=== PATIENT | female | born 1950 | race Caucasian/White ===

== ENCOUNTER → 2016-03-22 | Outpatient (CLI) | payer OTHER ==
[~2016-03-22] MED LIST: AMLO5TAB2 PO; AMPH20CA3 PO; ASP81TEC PO; CA C1TAB26 PO; CEFU500T5 PO; CYCL10TA9 PO; ESTR0.3T PO; HYDR1TAB8 OP; METH4TAB PO
--- NOTE | 2016-03-22 18:00 | Diagnostic Imaging Report ---
Indication: Lower respiratory infection x4 weeks PA and lateral chest Heart size and pulmonary vascularity are normal. Lungs are clear. There are no effusions or pneumothoraces. Impression: Negative chest Dictated by: Dictated on workstation # [id number]
[2016-03-22 18:17] LABS: MEAN PLATELET VOLUME 9.7 FL (7.4-10.4); RED BLOOD COUNT 4.46 10^6/uL (4.35-5.85); RED CELL DISTRIBUTION WIDTH 14.4 % (10.0-14.5); WHITE BLOOD COUNT 7.7 10^3/uL (4.3-11.0)
== END ==
LOC: RAD 17:37
PROVIDERS: ATTEND Family Medicine
DX: R05 Cough (principal)
CPT/HCPCS: 36415; 71020; 85027

== ENCOUNTER → 2018-03-26 | Outpatient (CLI) | payer MEDICARE, OTHER ==
[2018-03-26 09:42] LABS: BASOPHILS % (AUTO) 0 % (0-10); EOSINOPHILS # (AUTO) 0.2 10^3/uL (0.0-0.3); EOSINOPHILS % (AUTO) 2 % (0-10); HEMATOCRIT 39 % (35-52); LYMPHOCYTES % (AUTO) 22 % (12-44); MEAN CORPUSCULAR HEMOGLOBIN 28 PG (25-34); MEAN CORPUSCULAR HGB CONC 33 G/DL (32-36); MEAN CORPUSCULAR VOLUME 83 FL (80-99); MEAN PLATELET VOLUME 10.3 FL (7.4-10.4); MONOCYTES # (AUTO) 0.6 X 10^3 (0.0-1.0); MONOCYTES % (AUTO) 6 % (0-12); NEUTROPHILS # (AUTO) 6.4 X 10^3 (1.8-7.8); NEUTROPHILS % (AUTO) 70 % (42-75); PLATELET COUNT 342 10^3/uL (130-400); RED BLOOD COUNT 4.68 10^6/uL (4.35-5.85); RED CELL DISTRIBUTION WIDTH 13.6 % (10.0-14.5); WHITE BLOOD COUNT 9.2 10^3/uL (4.3-11.0)
[2018-03-26 10:12] LABS: ALANINE AMINOTRANSFERASE 27 U/L (0-55); ALBUMIN 4.5 GM/DL (3.2-4.5); ALKALINE PHOSPHATASE 96 U/L (40-136); BILIRUBIN,TOTAL 0.4 MG/DL (0.1-1.0); BUN/CREATININE RATIO 19; CALCIUM 9.4 MG/DL (8.5-10.1); CARBON DIOXIDE 24 MMOL/L (21-32); CHLORIDE 106 MMOL/L (98-107); CHOLESTEROL 225 MG/DL (< 200); GFR ESTIMATED > 60; GLUCOSE 103 MG/DL (70-105); HDL CHOLESTEROL 67 MG/DL (40-60); POTASSIUM 3.8 MMOL/L (3.6-5.0); SODIUM 142 MMOL/L (135-145); TOTAL PROTEIN 7.8 GM/DL (6.4-8.2)
[2018-03-26 11:20] LABS: TRIGLYCERIDES 181 MG/DL (<150); VLDL CHOLESTEROL 36 MG/DL (5-40)
== END ==
LOC: LAB 09:26
PROVIDERS: ATTEND Family Medicine
DX: E78.5 Hyperlipidemia, unspecified (principal); E11.9 Type 2 diabetes mellitus without complications; R53.83 Other fatigue; I10 Essential (primary) hypertension
CPT/HCPCS: 36415; 80053; 80061; 83036; 85025

== ENCOUNTER → 2018-10-06 | Outpatient (CLI) | payer MEDICARE, OTHER ==
[2018-10-06 11:15] LABS: ALANINE AMINOTRANSFERASE 34 U/L (0-55); ALBUMIN 4.5 GM/DL (3.2-4.5); ALKALINE PHOSPHATASE 101 U/L (40-136); BILIRUBIN,TOTAL 0.5 MG/DL (0.1-1.0); BUN/CREATININE RATIO 14; CALCIUM 9.7 MG/DL (8.5-10.1); CARBON DIOXIDE 25 MMOL/L (21-32); CHLORIDE 102 MMOL/L (98-107); CHOLESTEROL 213 MG/DL (< 200); CREATININE SERUM 0.74 MG/DL (0.60-1.30); GFR ESTIMATED > 60; GLUCOSE 97 MG/DL (70-105); HDL CHOLESTEROL 59 MG/DL (40-60); POTASSIUM 3.9 MMOL/L (3.6-5.0); SODIUM 139 MMOL/L (135-145); TOTAL PROTEIN 7.5 GM/DL (6.4-8.2); TRIGLYCERIDES 173 MG/DL (<150); VLDL CHOLESTEROL 35 MG/DL (5-40)
== END ==
LOC: LAB 10:29
PROVIDERS: ATTEND Family Medicine
DX: E78.00 Pure hypercholesterolemia, unspecified (principal); E11.9 Type 2 diabetes mellitus without complications
CPT/HCPCS: 36415; 80053; 80061; 82570; 83036; 84156

== ENCOUNTER 2021-09-18 14:07 | Emergency (ER) | payer MEDICARE, OTHER ==
[~2021-09-18] VITALS: Ht 170.2 cm; Wt 106.6 kg
--- NOTE | 2021-09-18 14:43 | ED Chest Pain ---
General Chief Complaint: Chest Pain Stated Complaint: POSSIBLE HEART ATTACK YESTERDAY Source: patient Exam Limitations: no limitations History of Present Illness Date Seen by Provider: Sep 18, 2021 Time Seen by Provider: 14:20 Initial Comments Patient to the ER by private conveyance chief complaint yesterday while at the grocery store she started having some crushing gripping belt-like squeezing around her middle of her chest pain and pressure. It did not go away so she went home took a couple aspirin and took a nap. When she woke up 5 hours later it was gone. She does not have a history of coronary disease. She does not have history of smoking, hyperlipidemia or diabetes but she does have a history of hypertension. She is known to primary care in [place]. Cardiac catheterization by Dr. Sosa 2011 demonstrating no significant obstr uctive disease, 20 to 30% proximal right coronary artery stenosis otherwise nonobstructive. EF of 60%. Normal thoracic aorta and aortic root. Allergies and Home Medications Allergies Coded Allergies: No Known Drug Allergies (Unverified , 05/09/11) Patient Home Medication List Home Medication List Reviewed: Yes Amlodipine Besylate (Amlodipine Besylate) 5 Mg Tablet, 5 MG PO HS, (Reported) Entered as Reported by: LUCÍA MALAGON on 05/09/11 1259 Amphet Asp/Amphet/D-Amphet (Adderall Xr 20 Mg Capsule) 20 Mg Cap.sr.24h, 20 MG PO DAILY, (Reported) Entered as Reported by: LUCÍA MALAGON on 05/09/11 1259 Aspirin (Aspirin Ec 81 Mg) 81 Mg Tabec, 81 MG PO DAILY, (Reported) Entered as Reported by: KURTIS MENCHACA on 05/10/11 1022 Estrogens Conjugated (Premarin Tab) 0.3 Mg Tab, 0.3 MG PO DAILY, (Reported) Entered as Reported by: LUCÍA MALAGON on 05/09/11 1259 Hydrocodone Bit/Ibuprofen (Vicoprofen 200-7.5 Mg Tab) 1 Each Tablet, 1-2 EACH OP Q 4 - 6 HRS PRN Prescribed by: OUMAR ROSENBERG on 01/30/121942 Review of Systems Review of Systems Constitutional: No chills, No diaphoresis EENTM: No Blurred Vision, No Double Vision Respiratory: Denies Cough, Denies Shortness of Air Cardiovascular: Chest Pain; Denies Edema, Denies Lightheadedness Gastrointestinal: Denies Abdominal Pain, Denies Constipated, Denies Diarrhea, Denies Nausea Genitourinary: Denies Burning, Denies Discharge Musculoskeletal: No back pain, No joint pain All Other Systems Reviewed Negative Unless Noted: Yes Past Ptequzs-Ieguqs-Vfiirj Hx Patient Social History Tobacco Use?: No Use of E-Cig and/or Vaping dev: No Physical Exam Vital Signs Vital Signs - First Documented 09/18/21 14:10 Temp 36.3 Pulse 80 Resp 15 B/P (MAP) 102/68 (79) O2 Delivery Room Air Capillary Refill : Height, Weight, BMI Height: '" Weight: lbs. oz. kg; BMI Method:Stated General Appearance: No Apparent Distress, WD/WN, Anxious HEENT: PERRL/EOMI, Pharynx Normal, Moist Mucous Membranes Neck: Full Range of Motion, Normal Inspection Respiratory: Chest Non Tender, Lungs Clear, Normal Breath Sounds, No Accessory Muscle Use, No Respiratory Distress Cardiovascular: Regular Rate, Rhythm, No Edema, Normal Peripheral Pulses Gastrointestinal: Normal Bowel Sounds, No Organomegaly, Non Tender, Soft Extremity: Normal Capillary Refill, Normal Inspection, No Pedal Edema Neurologic/Psychiatric: Alert, Oriented x3, No Motor/Sensory Deficits, Normal Mood/Affect Skin: Normal Color, Warm/Dry Progress/Results/Core Measures Results/Orders Lab Results Laboratory Tests Test 09/18/21 14:15 Range/Units White Blood Count 9.2 4.3-11.0 10^3/uL Red Blood Count 4.17 3.80-5.11 10^6/uL Hemoglobin 11.5 11.5-16.0 g/dL Hematocrit 36 35-52 % Mean Corpuscular Volume 86 80-99 fL Mean Corpuscular Hemoglobin 28 25-34 pg Mean Corpuscular Hemoglobin Concent 32 32-36 g/dL Red Cell Distribution Width 13.3 10.0-14.5 % Platelet Count 333 130-400 10^3/uL Mean Platelet Volume 11.1 9.0-12.2 fL Immature Granulocyte % (Auto) 0 % Neutrophils (%) (Auto) 69 42-75 % Lymphocytes (%) (Auto) 21 12-44 % Monocytes (%) (Auto) 8 0-12 % Eosinophils (%) (Auto) 2 0-10 % Basophils (%) (Auto) 0 0-10 % Neutrophils # (Auto) 6.3 1.8-7.8 X 10^3 Lymphocytes # (Auto) 1.9 1.0-4.0 X 10^3 Monocytes # (Auto) 0.7 0.0-1.0 X 10^3 Eosinophils # (Auto) 0.2 0.0-0.3 10^3/uL Basophils # (Auto) 0.0 0.0-0.1 10^3/uL Immature Granulocyte # (Auto) 0.0 0.0-0.1 10^3/uL Prothrombin Time 12.7 12.2-14.7 SEC INR Comment 0.9 0.8-1.4 Activated Partial Thromboplast Time 37 H 24-35 SEC Sodium Level 140 135-145 MMOL/L Potassium Level 3.6 3.6-5.0 MMOL/L Chloride Level 105 98-107 MMOL/L Carbon Dioxide Level 23 21-32 MMOL/L Anion Gap 12 5-14 MMOL/L Blood Urea Nitrogen 18 7-18 MG/DL Creatinine 1.05 0.60-1.30 MG/DL Estimat Glomerular Filtration Rate 57 BUN/Creatinine Ratio 17 Glucose Level 123 H 70-105 MG/DL Calcium Level 9.3 8.5-10.1 MG/DL Corrected Calcium 8.9 8.5-10.1 MG/DL Magnesium Level 2.1 1.6-2.4 MG/DL Total Bilirubin 0.4 0.1-1.0 MG/DL Aspartate Amino Transf (AST/SGOT) 30 5-34 U/L Alanine Aminotransferase (ALT/SGPT) 36 0-55 U/L Alkaline Phosphatase 80 40-136 U/L Myoglobin 43.1 10.0-92.0 NG/ML Troponin I < 0.028 <0.028 NG/ML Total Protein 7.6 6.4-8.2 GM/DL Albumin 4.5 3.2-4.5 GM/DL Lipase 38 8-78 U/L My Orders Orders - ARLEEN SOSA Ekg Tracing (09/18/21 14:12) Ekg Tracing (09/18/21 14:14) Cbc With Automated Diff (09/18/21 14:44) Magnesium (09/18/21 14:44) Chest 1 View, Ap/Pa Only (09/18/21 14:44) Comprehensive Metabolic Panel (09/18/21 14:44) Myoglobin Serum (09/18/21 14:44) Protime With Inr (09/18/21 14:44) Partial Thromboplastin Time (09/18/21 14:44) O2 (09/18/21 14:44) Monitor-Rhythm Ecg Trace Only (09/18/21 14:44) Ed Iv/Invasive Line Start (09/18/21 14:44) Lipase (09/18/21 14:44) Troponin I [place] (09/18/21 14:44) Aspirin Chewable Tablet (Baby Aspirin Ch (09/18/21 14:45) Medications Given in ED Current Medications Medications Dose Ordered Sig/Mathieu Route Start Time Stop Time Status Last Admin Dose Admin Aspirin 324 mg ONCE ONCE PO 09/18/21 14:45 09/18/21 14:46 DC 09/18/21 14:54 324 MG Vital Signs/I&O 09/18/21 14:10 Temp 36.3 Pulse 80 Resp 15 B/P (MAP) 102/68 (79) O2 Delivery Room Air Progress Progress Note : Time: 17:46 Progress Note Patient's initial troponin -24 hours after her symptoms is negative. We will have her follow-up in the next week or so with Dr. Faith, cardiology. She does not routinely follow with a hydrology teacher and while she is been seen in the past by Dr. Sosa he is unavailable this week. Initial ECG Impression Date: Sep 18, 2021 Initial ECG Impression Time: 14:15 Initial ECG Rate: 67 Initial ECG Rhythm: Normal Sinus Initial ECG Intervals: Normal Initial ECG Impression: Normal Comment Normal sinus rhythm without clinically relevant ST elevation or depression Diagnostic Imaging Diagonstic Imaging: Xray Plain Films/CT/US/NM/MRI: chest Comments [facility] [place] [place] NAME: VIOLETA CARRIZALES [facility] REC#: [id number] PT STATUS: REG ER : 1950 PHYSICIAN: ARLEEN SOSA MD ADMIT DATE: 09/18/21/ER Signed Date of Exam:09/18/21 CHEST 1 VIEW, AP/PA ONLY INDICATION: Chest pain. Frontal chest obtained at 3:08 p.m. and compared to 03/22/2016. FINDINGS: Heart is mildly enlarged. There is mild central vascular congestion. There is no focal infiltrate or pneumothorax or pleural fluid. IMPRESSION: Mild cardiomegaly and central vascular congestion with no acute consolidation or pleural fluid. Dictated by: Dictated on workstation # [id number] Dict: 09/18/21 1510 Trans: 09/18/21 1705 [id number] Interpreted by: CORKY MERAZ MD Electronically signed by: CORKY MERAZ MD 09/18/21 1705 Reviewed: Reviewed by Me Departure Impression Primary Impression: Chest pain Qualified Codes: R07.9 - Chest pain, unspecified Disposition: HOME, SELF-CARE Condition: Stable Departure-Patient Inst. Decision time for Depature: 17:47 Referrals: PENELOPE FAITH MD FACP [facility] JAYSON SPENCER DO (PCP) Primary Care Physician Patient Instructions: Chest Pain Add. Discharge Instructions: Tomorrow morning call Dr. Faith, cardiology and make a follow-up appointment this week. Return to the ER for significantly worsening chest pain, shortness of air or other worrisome symptoms. All discharge instructions reviewed with patient and/or family. Voiced understanding. ARLEEN SOSA Sep 18, 2021 14:43
[2021-09-18] MEDS ORDERED: ASPIRIN 81 MG CHEW (CHILDREN'S ASA) PO ONE (14:45)
[2021-09-18 14:52] LABS: BASOPHILS % (AUTO) 0 % (0-10); EOSINOPHILS # (AUTO) 0.2 10^3/uL (0.0-0.3); EOSINOPHILS % (AUTO) 2 % (0-10); HEMATOCRIT 36 % (35-52); HEMOGLOBIN 11.5 g/dL (11.5-16.0); LYMPHOCYTES # (AUTO) 1.9 X 10^3 (1.0-4.0); LYMPHOCYTES % (AUTO) 21 % (12-44); MEAN CORPUSCULAR HEMOGLOBIN 28 pg (25-34); MEAN CORPUSCULAR HGB CONC 32 g/dL (32-36); MEAN CORPUSCULAR VOLUME 86 fL (80-99); MEAN PLATELET VOLUME 11.1 fL (9.0-12.2); MONOCYTES # (AUTO) 0.7 X 10^3 (0.0-1.0); MONOCYTES % (AUTO) 8 % (0-12); NEUTROPHILS # (AUTO) 6.3 X 10^3 (1.8-7.8); NEUTROPHILS % (AUTO) 69 % (42-75); PLATELET COUNT 333 10^3/uL (130-400); WHITE BLOOD COUNT 9.2 10^3/uL (4.3-11.0)
[2021-09-18 14:57] LABS: ALBUMIN 4.5 GM/DL (3.2-4.5); POTASSIUM 3.6 MMOL/L (3.6-5.0)
[2021-09-18 14:58] LABS: CALCIUM 9.3 MG/DL (8.5-10.1)
[2021-09-18 14:59] LABS: INR 0.9 (0.8-1.4); PROTHROMBIN TIME PATIENT 12.7 SEC (12.2-14.7); TOTAL PROTEIN 7.6 GM/DL (6.4-8.2)
[2021-09-18 15:01] LABS: BILIRUBIN,TOTAL 0.4 MG/DL (0.1-1.0)
[2021-09-18 15:03] LABS: CREATININE SERUM 1.05 MG/DL (0.60-1.30)
[2021-09-18 15:06] LABS: MAGNESIUM 2.1 MG/DL (1.6-2.4)
--- NOTE | 2021-09-18 15:13 | Diagnostic Imaging Report ---
INDICATION: Chest pain. Frontal chest obtained at 3:08 p.m. and compared to 03/22/2016. FINDINGS: Heart is mildly enlarged. There is mild central vascular congestion. There is no focal infiltrate or pneumothorax or pleural fluid. IMPRESSION: Mild cardiomegaly and central vascular congestion with no acute consolidation or pleural fluid. Dictated by: Dictated on workstation # [id number]
[2021-09-18 18:11] VITALS: BP 146/83
== END 2021-09-18 18:11 | disposition home or self-care (01) ==
LOC: EDUNIT# 14:07 → ER 14:09
DX: R07.9 Chest pain, unspecified (principal)
CPT/HCPCS: 36415; 71045; 80053; 83690; 83735; 83874; 84484; 85025; 85610; 85730; 93005; 93041

== ENCOUNTER 2021-12-20 13:01 | Emergency (ER) | payer MEDICARE, OTHER ==
--- NOTE | 2021-12-20 13:18 | ED Abdominal Pain ---
General Chief Complaint: Abdominal/GI Problems Stated Complaint: LEFT SIDE ABD PAIN/VOMITING Nursing Triage Note: Patient presented to the ER today with complaints of vomiting. She advised that vomiting began approximately 30 minutes prior to arrival. Patient states she began experiencing left lower quadrant pain shortly after. Source of Information: Patient Exam Limitations: No Limitations History of Present Illness Date Seen by Provider: Dec 20, 2021 Time Seen by Provider: 13:07 Initial Comments 71-year-old female presents emerged from today for left-sided abdominal pain. Symptoms started about 45 minutes prior to arrival and are described as dull throbbing and associated with vomiting. She has never had similar symptoms in the past. She describes the pain as severe without radiation. No aggravating or alleviating factors. Emesis is nonbloody and nonbilious. Symptoms came on suddenly and she felt fine just prior to the events. Normal bowel movements, no urinary symptoms. No vaginal symptoms. She has had a total abdominal hysterectomy. Allergies and Home Medications Allergies Coded Allergies: No Known Drug Allergies (Unverified , 05/09/11) Patient Home Medication List Home Medication List Reviewed: Yes Amlodipine Besylate (Amlodipine Besylate) 5 Mg Tablet, 5 MG PO HS, (Reported) Entered as Reported by: LUCÍA MALAGON on 05/09/11 1259 Amphet Asp/Amphet/D-Amphet (Adderall Xr 20 Mg Capsule) 20 Mg Cap.sr.24h, 20 MG PO DAILY, (Reported) Entered as Reported by: LUCÍA MALAGON on 05/09/11 1259 Aspirin (Aspirin Ec 81 Mg) 81 Mg Tabec, 81 MG PO DAILY, (Reported) Entered as Reported by: KURTIS MENCHACA on 05/10/11 1022 Estrogens Conjugated (Premarin Tab) 0.3 Mg Tab, 0.3 MG PO DAILY, (Reported) Entered as Reported by: LUCÍA MALAGON on 05/09/11 1259 Hydrocodone Bit/Ibuprofen (Vicoprofen 200-7.5 Mg Tab) 1 Each Tablet, 1-2 EACH OP Q 4 - 6 HRS PRN Prescribed by: OUMAR ROSENBERG on 01/30/121942 Review of Systems Review of Systems Constitutional: no symptoms reported EENTM: No Symptoms Reported Respiratory: No Symptoms Reported Cardiovascular: No Symptoms Reported Gastrointestinal: Abdominal Pain, Nausea, Vomiting Genitourinary: No Symptoms Reported Musculoskeletal: no symptoms reported Skin: no symptoms reported Psychiatric/Neurological: No Symptoms Reported Endocrine: No Symptoms Reported Hematologic/Lymphatic: No Symptoms Reported Past Dtfrykt-Iksvev-Kuwrsd Hx Patient Social History Tobacco Use?: Yes Use of E-Cig and/or Vaping dev: No Substance use?: No Alcohol Use?: No Family Medical History Reviewed Nursing Family Hx No Pertinent Family Hx Physical Exam Vital Signs Vital Signs - First Documented 12/20/21 13:11 Temp 37.1 Pulse 85 Resp 18 B/P (MAP) 173/103 (126) Pulse Ox 97 O2 Delivery Room Air Capillary Refill : Less Than 3 Seconds Height/Weight/BMI Height: '" Weight: lbs. oz. kg; 36.00 BMI Method:Stated General Appearance: WD/WN, no apparent distress HEENT: PERRL/EOMI, normal ENT inspection, TMs normal, pharynx normal Neck: non-tender, full range of motion, supple, normal inspection Respiratory: chest non-tender, lungs clear, normal breath sounds, no respiratory distress, no accessory muscle use Cardiovascular: regular rate, rhythm, no edema, no gallop, no JVD, no murmur Gastrointestinal: normal bowel sounds, soft, no organomegaly, no pulsatile mass, tenderness (Tenderness palpation left mid abdomen with voluntary guarding. No rebound tenderness no mass organomegaly.) Extremities: normal range of motion, non-tender, normal inspection, no pedal edema, no calf tenderness, normal capillary refill Neurologic/Psychiatric: no motor/sensory deficits, alert, normal mood/affect, oriented x 3 Skin: normal color, other (Diaphoresis) Progress/Results/Core Measures Results/Orders Lab Results Laboratory Tests Test 12/20/21 13:22 12/20/21 14:19 Range/Units White Blood Count 20.5 H 4.3-11.0 10^3/uL Red Blood Count 4.48 3.80-5.11 10^6/uL Hemoglobin 12.5 11.5-16.0 g/dL Hematocrit 38 35-52 % Mean Corpuscular Volume 84 80-99 fL Mean Corpuscular Hemoglobin 28 25-34 pg Mean Corpuscular Hemoglobin Concent 33 32-36 g/dL Red Cell Distribution Width 13.3 10.0-14.5 % Platelet Count 376 130-400 10^3/uL Mean Platelet Volume 10.9 9.0-12.2 fL Immature Granulocyte % (Auto) 1 % Neutrophils (%) (Auto) 90 H 42-75 % Lymphocytes (%) (Auto) 6 L 12-44 % Monocytes (%) (Auto) 3 0-12 % Eosinophils (%) (Auto) 0 0-10 % Basophils (%) (Auto) 0 0-10 % Neutrophils # (Auto) 18.5 H 1.8-7.8 10^3/uL Lymphocytes # (Auto) 1.3 1.0-4.0 10^3/uL Monocytes # (Auto) 0.5 0.0-1.0 10^3/uL Eosinophils # (Auto) 0.0 0.0-0.3 10^3/uL Basophils # (Auto) 0.1 0.0-0.1 10^3/uL Immature Granulocyte # (Auto) 0.1 0.0-0.1 10^3/uL Neutrophils % (Manual) 96 % Lymphocytes % (Manual) 3 % Monocytes % (Manual) 1 % Microcytosis SLIGHT Sodium Level 139 135-145 MMOL/L Potassium Level 3.4 L 3.6-5.0 MMOL/L Chloride Level 104 98-107 MMOL/L Carbon Dioxide Level 20 L 21-32 MMOL/L Anion Gap 15 H 5-14 MMOL/L Blood Urea Nitrogen 19 H 7-18 MG/DL Creatinine 1.02 0.60-1.30 MG/DL Estimat Glomerular Filtration Rate 59 BUN/Creatinine Ratio 19 Glucose Level 202 H 70-105 MG/DL Calcium Level 9.7 8.5-10.1 MG/DL Corrected Calcium 8.5-10.1 MG/DL Total Bilirubin 0.5 0.1-1.0 MG/DL Aspartate Amino Transf (AST/SGOT) 19 5-34 U/L Alanine Aminotransferase (ALT/SGPT) 22 0-55 U/L Alkaline Phosphatase 83 40-136 U/L Troponin I < 0.028 <0.028 NG/ML Total Protein 8.6 H 6.4-8.2 GM/DL Albumin 4.9 H 3.2-4.5 GM/DL Lipase 38 8-78 U/L Urine Color YELLOW Urine Clarity SL CLOUDY Urine pH 5.0 5-9 Urine Specific [place] >=1.030 1.016-1.022 Urine Protein 2+ H NEGATIVE Urine Glucose (UA) NEGATIVE NEGATIVE Urine Ketones NEGATIVE NEGATIVE Urine Nitrite NEGATIVE NEGATIVE Urine Bilirubin NEGATIVE NEGATIVE Urine Urobilinogen 0.2 < = 1.0 MG/DL Urine Leukocyte Esterase NEGATIVE NEGATIVE Urine RBC (Auto) 3+ H NEGATIVE Urine RBC 50-100 H /HPF Urine WBC 0-2 /HPF Urine Squamous Epithelial Cells 0-2 /HPF Urine Crystals PRESENT H /LPF Urine Amorphous Sediment FEW ACACIA URATES H /LPF Urine Bacteria NEGATIVE /HPF Urine Casts PRESENT /LPF Urine Hyaline Casts 2-5 H /LPF Urine Mucus NEGATIVE /LPF Urine Culture Indicated NO My Orders Orders - VENKAT TOVAR DO Cbc With Automated Diff (12/20/21 13:16) Comprehensive Metabolic Panel (12/20/21 13:16) Lipase (12/20/21 13:16) Ct Abdomen/Pelvis W (12/20/21 13:16) Troponin I [place] (12/20/21 13:18) Ekg Tracing (12/20/21 13:18) Fentanyl Inj (Sublimaze Injection) (12/20/21 13:30) Ondansetron Injection (Zofran Injectio (12/20/21 13:30) Ondansetron Injection (Zofran Injectio (12/20/21 13:22) Manual Differential (12/20/21 13:22) Ns Iv 500 Ml (Sodium Chloride 0.9%) (12/20/21 14:15) Iohexol Injection (Omnipaque 350 Mg/Ml 1 (12/20/21 14:30) Received Contrast (Hold Metformin- Contr (12/20/21 14:30) Ns (Ivpb) (Sodium Chloride 0.9% Ivpb Bag (12/20/21 14:30) Sodium Chloride Flush (Catheter Flush Sy (12/20/21 14:30) Diphenhydramine Injection (Benadryl Inje (12/20/21 14:45) Morphine Injection (Morphine Injection (12/20/21 14:45) Morphine Injection (Morphine Injection (12/20/21 14:48) Medications Given in ED Current Medications Medications Dose Ordered Sig/Mathieu Route Start Time Stop Time Status Last Admin Dose Admin Diphenhydramine HCl 25 mg ONCE ONCE IVP 12/20/21 14:45 12/20/21 14:46 DC 12/20/21 14:37 25 MG Fentanyl Citrate 50 mcg ONCE ONCE IVP 12/20/21 13:30 12/20/21 13:31 DC 12/20/21 13:25 50 MCG Iohexol 100 ml ONCE ONCE IV 12/20/21 14:30 12/20/21 14:31 DC 12/20/21 14:26 80 ML Ondansetron HCl 8 mg ONCE ONCE IVP 12/20/21 13:30 12/20/21 13:31 DC 12/20/21 13:24 8 MG Sodium Chloride 10 ml NEEDED PRN IV 12/20/21 14:30 12/20/21 14:26 10 ML Sodium Chloride 100 ml ONCE ONCE IV 12/20/21 14:30 12/20/21 14:31 DC 12/20/21 14:26 80 ML Vital Signs/I&O 12/20/21 13:11 Temp 37.1 Pulse 85 Resp 18 B/P (MAP) 173/103 (126) Pulse Ox 97 O2 Delivery Room Air Blood Pressure Mean: 126 Departure Impression Primary Impression: Ureterolithiasis Disposition: HOME, SELF-CARE Condition: Stable Departure-Patient Inst. Referrals: ELVIA FORREST MD, STEPHEN R DO (PCP) Primary Care Physician Patient Instructions: Kidney Stones in Adults Add. Discharge Instructions: Please alternate pain medications as prescribed as needed. Do not drive or make important decisions while taking it as it may make you drowsy. Use Zofran as needed for nausea. Increase your fluids at home and take the Flomax help give you the best possible bleeding of passing a kidney stone. Return to the emergency department for any severe concerns. I recommend you call the urologist immediately to schedule follow-up appointment. Return to the emergency department for any pain is not controlled or if your symptoms change in any way concerning to you. Dr. Jose G Mooney Urologist Address: [address] [place] [id number] All discharge instructions reviewed with patient and/or family. Voiced understanding. Scripts Ondansetron (Ondansetron Odt) 8 Mg Tab.rapdis 8 MG SL Q4H PRN for NAUSEA/VOMITING for 3 Days, #18 TAB Prov: VENKAT TOVAR DO 12/20/21 Ketorolac Tromethamine (Ketorolac Tromethamine) 10 Mg Tablet 10 MG PO TID for Pain for 3 Days, #9 TAB Prov: VENKAT TOVAR DO 12/20/21 Tamsulosin HCl (Flomax) 0.4 Mg Cap 0.4 MG PO DAILY for 3 Days, #3 CAP Prov: VENKAT TOVAR DO 12/20/21 Hydrocodone Bit/Acetaminophen (HYDROcodone/APAP 5 MG/325 MG TAB) 1 Tab Tab 1 TAB PO Q6H for Pain for 3 Days, #12 TAB Prov: VENKAT TOVAR DO 12/20/21 VENKAT TOVAR DO Dec 20, 2021 13:18
[2021-12-20] MEDS ORDERED: ONDANSETRON 4 MG/2 ML (SDV) Z0FRAN ONE (13:22)
[2021-12-20] MEDS ORDERED: fentaNYL INJ 100 MCG/2 ML AMP IVP ONE (13:30)
[2021-12-20] MEDS ORDERED: ONDANSETRON 4 MG/2 ML (SDV) Z0FRAN IVP ONE (13:30)
[2021-12-20 13:38] LABS: BASOPHILS # (AUTO) 0.1 10^3/uL (0.0-0.1); BASOPHILS % (AUTO) 0 % (0-10); EOSINOPHILS % (AUTO) 0 % (0-10); HEMATOCRIT 38 % (35-52); HEMOGLOBIN 12.5 g/dL (11.5-16.0); LYMPHOCYTES # (AUTO) 1.3 10^3/uL (1.0-4.0); LYMPHOCYTES % (AUTO) 6 % (12-44); MEAN CORPUSCULAR HEMOGLOBIN 28 pg (25-34); MEAN CORPUSCULAR HGB CONC 33 g/dL (32-36); MEAN CORPUSCULAR VOLUME 84 fL (80-99); MEAN PLATELET VOLUME 10.9 fL (9.0-12.2); MONOCYTES # (AUTO) 0.5 10^3/uL (0.0-1.0); MONOCYTES % (AUTO) 3 % (0-12); NEUTROPHILS # (AUTO) 18.5 10^3/uL (1.8-7.8); NEUTROPHILS % (AUTO) 90 % (42-75); PLATELET COUNT 376 10^3/uL (130-400); WHITE BLOOD COUNT 20.5 10^3/uL (4.3-11.0)
[2021-12-20 13:56] LABS: LYMPHOCYTES % (MANUAL) 3 %; MICROCYTOSIS SLIGHT; MONOCYTES % (MANUAL) 1 %; NEUTROPHILS % (MANUAL) 96 %
[2021-12-20 14:02] LABS: ALBUMIN 4.9 GM/DL (3.2-4.5)
[2021-12-20 14:03] LABS: CHLORIDE 104 MMOL/L (98-107); POTASSIUM 3.4 MMOL/L (3.6-5.0); SODIUM 139 MMOL/L (135-145)
[2021-12-20 14:04] LABS: CALCIUM 9.7 MG/DL (8.5-10.1)
[2021-12-20 14:05] LABS: GLUCOSE 202 MG/DL (70-105); TOTAL PROTEIN 8.6 GM/DL (6.4-8.2)
[2021-12-20 14:06] LABS: CARBON DIOXIDE 20 MMOL/L (21-32)
[2021-12-20 14:07] LABS: BILIRUBIN,TOTAL 0.5 MG/DL (0.1-1.0)
[2021-12-20 14:08] LABS: ALKALINE PHOSPHATASE 83 U/L (40-136)
[2021-12-20 14:09] LABS: CREATININE SERUM 1.02 MG/DL (0.60-1.30); GFR ESTIMATED 59
[2021-12-20 14:10] LABS: BUN/CREATININE RATIO 19
[2021-12-20 14:11] LABS: ALANINE AMINOTRANSFERASE 22 U/L (0-55)
[2021-12-20 14:12] LABS: LIPASE 38 U/L (8-78)
[2021-12-20] MEDS ORDERED: NS IV 500 ML 500 ML IV SCH (14:15)
[2021-12-20] MEDS ORDERED: CATHETER FLUSH 10 ML SYR IV PRN (14:30)
[2021-12-20] MEDS ORDERED: HOLD METFORMIN - RECEIVED CONTRAST 20 ML VIAL IV SCH (14:30)
[2021-12-20] MEDS ORDERED: NS 100 ML (IVPB) BAG IV ONE (14:30)
[2021-12-20] MEDS ORDERED: IOHEXOL 350 MG/ML 100 ML (OMNIPAQUE 350) VIAL IV ONE (14:30)
[2021-12-20 14:31] LABS: BILIRUBIN,URINE NEGATIVE (NEGATIVE); CLARITY,URINE SL CLOUDY; COLOR,URINE YELLOW; GLUCOSE, URINE (UA) NEGATIVE (NEGATIVE); KETONES,URINE NEGATIVE (NEGATIVE); LEUKOCYTE ESTERASE ,URINE NEGATIVE (NEGATIVE); NITRITE,URINE NEGATIVE (NEGATIVE); PROTEIN,URINE 2+ (NEGATIVE)
--- NOTE | 2021-12-20 14:38 | Diagnostic Imaging Report ---
PROCEDURE: CT abdomen and pelvis with contrast. TECHNIQUE: Multiple contiguous axial images were obtained through the abdomen and pelvis after administration of intravenous contrast. Auto Exposure Controls were utilized during the CT exam to meet ALARA standards for radiation dose reduction. All CT scans use one or more of the following dose optimizing techniques: automated exposure control, MA and/or KvP adjustment based on patient size and exam type or iterative reconstruction. INDICATION: Left abdominal pain with nausea and emesis. FINDINGS: There is low density throughout the liver, indicating steatosis. No focal hepatic or gallbladder abnormality is identified. Pancreas, adrenal glands and spleen are also unremarkable. There is mild hiatal hernia. Renal perfusion is symmetric bilaterally without solid mass identified. There is mild left hydronephrosis with an approximately 0.6 cm calculus at the left ureteropelvic junction. There is no free fluid in the abdomen or pelvis. Urinary bladder is largely decompressed but otherwise unremarkable. Note is made of mild lumbar spondylosis. IMPRESSION: At least partially obstructing 0.6 cm left ureteropelvic junction calculus with mild associated left hydronephrosis. Note is also made of hepatic steatosis and mild hiatal hernia. Dictated by: Dictated on workstation # [id number]
[2021-12-20 14:39] LABS: AMORPHOUS SEDIMENT,UR FEW AMOR URATES /LPF; BACTERIA,URINE NEGATIVE /HPF; RBC,URINE 50-100 /HPF; SQUAMOUS EPITHELIAL CELL,UR 0-2 /HPF; WBC,URINE 0-2 /HPF
[2021-12-20] MEDS ORDERED: diphenhydrAMINE 50 MG/ML INJ (BENADRYL) IVP ONE (14:45)
[2021-12-20] MEDS ORDERED: morphine INJ 4 MG/ML 1 ML (VIAL/SYRINGE) IVP ONE (14:45)
[2021-12-20] MEDS ORDERED: morphine INJ 10 MG/ML 1ML (SYR OR VIAL) IVP STA (14:48)
[2021-12-20] MEDS ORDERED: ACHD5005 PO (16:00)
[2021-12-20] MEDS ORDERED: ONDA8TAB13 SL (16:00)
[2021-12-20] MEDS ORDERED: KETO10TA PO (16:00)
[2021-12-20] MEDS ORDERED: TMSL.4C PO (16:00)
[2021-12-20 16:11] VITALS: BP 145/79
[2021-12-20] MEDS ORDERED: HYDROcodone/APAP 5 MG/325 MG (LORTAB) TAB PO ONE (16:15)
== END 2021-12-20 16:11 | disposition home or self-care (01) ==
LOC: EDUNIT# 13:01 → ER 13:03
DX: N13.2 Hydronephrosis with renal and ureteral calculous obstruction (principal); Z28.310 Unvaccinated for COVID-19
CPT/HCPCS: 36415; 74177; 80053; 81000; 83690; 84484; 85007; 85027; 93005

== ENCOUNTER → 2022-01-15 | Outpatient (CLI) | payer MEDICARE, OTHER ==
[~2022-01-15] MED LIST changes: +ACHD5005 PO; +KETO10TA PO; +ONDA8TAB13 SL; +TMSL.4C PO
== END ==
LOC: CARD 09:56
PROVIDERS: ATTEND Internal Medicine Critical Care Medicine
DX: I08.1 Rheumatic disorders of both mitral and tricuspid valves (principal); I27.20 Pulmonary hypertension, unspecified; G47.33 Obstructive sleep apnea (adult) (pediatric)
CPT/HCPCS: 93306

== ENCOUNTER 2023-01-22 08:37 | Outpatient (RCR) | payer MEDICARE, OTHER | END 2023-01-29 11:38 | disposition home or self-care (01) | PROVIDERS: ATTEND Internal Medicine Critical Care Medicine | DX: J45.50 Severe persistent asthma, uncomplicated (principal); U09.9 Post COVID-19 condition, unspecified ==